=== PATIENT | female | born 1955 | race Caucasian/White ===

== ENCOUNTER 2017-08-29 07:39 | Emergency (ER) | payer OTHER ==
[~2017-08-29] VITALS: Ht 160 cm; Wt 65.8 kg
[2017-08-29 11:16] VITALS: BP 142/65
== END 2017-08-29 11:25 | disposition home or self-care (01) ==
LOC: ED 07:39
DX: M54.5 Low back pain (principal); E78.5 Hyperlipidemia, unspecified; M06.9 Rheumatoid arthritis, unspecified; Z88.0 Allergy status to penicillin
CPT/HCPCS: J1885; J3010